=== PATIENT | male | born 1985 | race Caucasian/White ===

== ENCOUNTER 2017-07-28 14:18 | Emergency (ER) | payer SELFPAY ==
[~2017-07-28] VITALS: Ht 182.9 cm; Wt 88.4 kg
[~2017-07-28 14:18] MED LIST: ACET-1256 PO
[2017-07-28 14:19] VITALS: Ht 182.9 cm; Wt 88.4 kg
[2017-07-28] MEDS ORDERED: KETOROLAC TROMETHAMINE 30 MG/ML VIAL IV STA (14:31)
[2017-07-28] MEDS ORDERED: SODIUM CHLORIDE 0.9% 1000ML 1,000 ML IV ONE (14:45)
[2017-07-28] MEDS ORDERED: ACETAMINOPHEN IV 100 ML IV ONE (14:45)
[2017-07-28 14:51] LABS: BASO % 0.2 %; BASO ABS # 0.03 K/uL (0-0.2); COMPLETE YES; EOS % 0.1 %; HEMATOCRIT 42.7 % (42-52); IG% 0.3 %; LYMPH % 5.5 %; LYMPH ABS # 0.85 K/uL (1.2-3.4); MEAN CELL VOLUME 86.6 fL (80-100); MEAN CORPUSCULAR HGB CONC 35.8 g/dl (32-36); MEAN PLATELET VOLUME 11.2 fL (7.4-10.4); MONO % 10.6 %; NEUT % 83.3 %; PLATELET COUNT 155 K/uL (130-400); RED BLOOD COUNT 4.93 M/uL (4.7-6.1); WHITE BLOOD COUNT 15.55 K/uL (4.8-10.8)
[2017-07-28] MEDS ORDERED: DEXAMETHASONE **PF** INJ 10 MG/ML VIAL IV ONE (15:00)
[2017-07-28] MEDS ORDERED: AZITHROMYCIN 250 MG TAB PO ONE ×2 (15:00→16:30)
[2017-07-28 15:09] LABS: BUN/CREATININE RATIO 11.7 (10-20); CALCIUM 9.1 mg/dl (8.5-10.1); CREATININE 1.31 mg/dl (0.60-1.40)
[2017-07-28 15:12] LABS: ALB/GLOB RATIO 0.9 (0.9-2)
[2017-07-28 15:19] VITALS: TEMP 38.8
[2017-07-28] MEDS ORDERED: AZIT250T PO (16:12)
[2017-07-28] MEDS ORDERED: PRED50TA PO (16:12)
[2017-07-28 16:53] VITALS: BP 113/62; PULSE 95; O2SAT 99
--- NOTE | 2017-07-28 21:36 | EMERGENCY ROOM VISIT NOTE ---
History First contact with patient: 14:23 Chief Complaint: FEVER Stated Complaint: NAUSEA,SHAKING,SORE THROAT,CONGESTION History of Present Illness The patient is a 32 year old male who presents to the Emergency Room with complaints of fever, chills, body aches, sore throat, and sinus congestion symptoms for the past one day. The patient considers himself usually healthy without chronic medical disease. He does not take medication on a regular basis. He does not have known exposure to disease. He states that he has had intermittent episodes of sweatiness followed by shaking chills. He has not taken anything for the discomfort. He does not have chest pain, chest tightness , shortness of breath, or abdominal pain. No rash. He is having some discomfort with swallowing. He states that he does have children at home, and they did have strep throat about 2 weeks ago. Review of Systems More than 10 systems were reviewed and otherwise negative with the exception of history of present illness. Past Medical/Surgical History No chronic medical disease Family History Diabetes mellitus Kidney disease Kidney stones Social History Smoking Status: Never Smoker Marital Status: Housing Status: lives with family Occupation Status: employed Current/Historical Medications Scheduled Azithromycin (Zithromax), 250 MG PO DAILY Prednisone (Prednisone), 50 MG PO DAILY Physical Exam Vital Signs Date Time Temp Pulse Resp B/P (MAP) Pulse Ox O2 Delivery O2 Flow Rate FiO2 07/28/17 16:53 95 113/62 99 07/28/17 15:19 38.8 07/28/17 14:19 39.4 130 18 121/61 96 Room Air Physical Exam VITALS: Vitals are noted on the nurse's note and reviewed by myself. Vital signs with noted fever GENERAL: White male who appears ill on examination. He is cooperative and not toxic. HEAD: Normocephalic atraumatic. EARS: External ear normal. External auditory canals clear, tympanic membranes pearly rodríguez without erythema or effusion bilaterally. EYES: Pupils equal round and reactive to light and accommodation. Conjunctivae without injection, sclerae without icterus. Extraocular movements intact. NOSE: Patent, turbinates without inflammation or discharge. MOUTH: Mucous membranes moist. Left tonsil is 3+ enlarged with exudate. Tonsils normal. Mild erythema of the posterior pharynx. Uvula is midline. No evidence of peritonsillar abscess. NECK: Supple without nuchal rigidity. No lymphadenopathy. No thyromegaly. Cervical spine is nontender. HEART: Regular rate and rhythm without murmurs gallops or rubs. LUNGS: Clear to auscultation bilaterally without wheezes, rales or rhonchi. No retractions or accessory muscle use. ABDOMEN: Positive normal bowel sounds x 4. Soft, nontender, without masses or organomegaly. No guarding or rebound tenderness. Medical Decision & Procedures Laboratory Results 07/28/17 14:40 Red Blood Count 4.93, Mean Corpuscular Volume 86.6, Mean Corpuscular Hemoglobin 31.0, Mean Corpuscular Hemoglobin Concent 35.8, Mean Platelet Volume 11.2, Neutrophils (%) (Auto) 83.3, Lymphocytes (%) (Auto) 5.5, Monocytes (%) (Auto) 10.6, Eosinophils (%) (Auto) 0.1, Basophils (%) (Auto) 0.2, Neutrophils # (Auto ) 12.96, Lymphocytes # (Auto) 0.85, Monocytes # (Auto) 1.65, Eosinophils # (Auto ) 0.01, Basophils # (Auto) 0.03 07/28/17 14:40 Test 07/28/17 14:40 07/28/17 15:20 White Blood Count 15.55 K/uL (4.8-10.8) Red Blood Count 4.93 M/uL (4.7-6.1) Hemoglobin 15.3 g/dL (14.0-18.0) Hematocrit 42.7 % (42-52) Mean Corpuscular Volume 86.6 fL (80-100) Mean Corpuscular Hemoglobin 31.0 pg (25-34) Mean Corpuscular Hemoglobin Concent 35.8 g/dl (32-36) Platelet Count 155 K/uL (130-400) Mean Platelet Volume 11.2 fL (7.4-10.4) Neutrophils (%) (Auto) 83.3 % Lymphocytes (%) (Auto) 5.5 % Monocytes (%) (Auto) 10.6 % Eosinophils (%) (Auto) 0.1 % Basophils (%) (Auto) 0.2 % Neutrophils # (Auto) 12.96 K/uL (1.4-6.5) Lymphocytes # (Auto) 0.85 K/uL (1.2-3.4) Monocytes # (Auto) 1.65 K/uL (0.11-0.59) Eosinophils # (Auto) 0.01 K/uL (0-0.5) Basophils # (Auto) 0.03 K/uL (0-0.2) RDW Standard Deviation 41.9 fL (36.4-46.3) RDW Coefficient of Variation 13.2 % (11.5-14.5) Immature Granulocyte % (Auto) 0.3 % Immature Granulocyte # (Auto) 0.05 K/uL (0.00-0.02) Anion Gap 10.0 mmol/L (3-11) Est Creatinine Clear Calc Drug Dose 88.1 ml/min Estimated GFR () 82.3 Estimated GFR (Non- 71.0 BUN/Creatinine Ratio 11.7 (10-20) Calcium Level 9.1 mg/dl (8.5-10.1) Total Bilirubin 3.9 mg/dl (0.2-1) Aspartate Amino Transf (AST/SGOT) 41 U/L (15-37) Alanine Aminotransferase (ALT/SGPT) 86 U/L (12-78) Alkaline Phosphatase 125 U/L (45-117) Total Protein 8.1 gm/dl (6.4-8.2) Albumin 3.9 gm/dl (3.4-5.0) Globulin 4.2 gm/dl (2.5-4.0) Albumin/Globulin Ratio 0.9 (0.9-2) Monoscreen NEG (NEG) Influenza Type A Antigen Neg for Influ A (NEG) Influenza Type B Antigen Neg for Influ B (NEG) Date/Time Source Procedure Growth Status 07/28/17 00:00 Throat Group A Streptococcus Screen - Final SPECIMEN POSITIVE FOR GROUP A BETA ST... Complete 07/28/17 00:00 Throat Group A Streptococcus Screen (GABRIELLA) - Final Complete Medications Administered Medications (Trade) Dose Ordered Sig/Leatha Route Start Time Stop Time Status Last Admin Dose Admin Sodium Chloride 1,000 ml @ 999 mls/hr Q1H1M ONCE IV 07/28/17 14:45 07/28/17 15:45 DC 07/28/17 14:47 999 MLS/HR Ketorolac Tromethamine (Toradol Inj) 30 mg NOW STAT IV 07/28/17 14:31 07/28/17 14:32 DC 07/28/17 14:49 30 MG Acetaminophen 100 ml @ 400 mls/hr NOW ONCE IV 07/28/17 14:45 07/28/17 14:59 DC 07/28/17 14:49 400 MLS/HR Azithromycin (Zithromax Tab) 500 mg NOW ONCE PO 07/28/17 15:00 07/28/17 15:01 DC 07/28/17 15:17 500 MG Dexamethasone Sodium Phosphate (Dexamethasone Inj Pf) 10 mg NOW ONCE IV 07/28/17 15:00 07/28/17 15:01 DC 07/28/17 15:17 10 MG Azithromycin (Zithromax Tab) 250 mg NOW ONCE PO 07/28/17 16:30 07/28/17 16:31 DC 07/28/17 16:41 250 MG ED Course Physical exam and history were performed. Nursing notes, EMR, and Medication List were personally reviewed. Patient appears to have a notable fever and illness for the past one day. The patient appears ill but not toxic on examination. He is febrile at this time. IV access was established and labs were obtained. The patient was hydrated with normal saline. He was given IV Toradol and IV Tylenol. Rapid strep was performed. The patient's blood work is as above and was reviewed. He does have an elevated white blood cell count of 15,000. He does not have a significant anemia or gross electrolyte imbalance. Influenza and Monospot were both negative. The patient's strep swab was positive, and this is felt to be the likely cause of his symptoms. I did elect to give him a dose of Decadron. The patient is allergic to penicillins and will be given a dose of Zithromax here in the department. He will also be given a dose to take home today, as tomorrow is Thanksgiving, and the pharmacies will be closed. Overall the patient's fever did improve with Advil, Tylenol, and fluids. I had a lengthy discussion with the patient regarding further care. I do recommend that he follow-up with his primary care physician in the next few days. If he has persistent fevers greater than 103.5F or difficulty with symptoms that may suggest a peritonsillar abscess, he is to return to the ER immediately. He was given additional discharge instructions as below. The patient was pleased with this and voiced understanding. The chart was completed utilizing [employer] [facility] Speech Voice Recognition Software. Grammatical errors, random word insertions, pronoun errors, and incomplete sentences are an occasional consequence of this system due to software limitations, ambient noise, and hardware issues. Any formal questions or concerns about the content, text, or information contained within the body of this dictation should be directly addressed to the provider for clarification. . Medical Decision Differential diagnosis: Etiologies such as viral syndrome, tonsillitis, streptococcal pharyngitis, mononucleosis, peritonsillar abscess, retropharyngeal abscess, otitis, pneumonia , influenza, as well as others were entertained. Blood Pressure Screening Patient's blood pressure: Normal blood pressure Impression Primary Impression: Strep pharyngitis Additional Impression: Fever Departure Information Dispostion Home / Self-Care Condition GOOD Prescriptions Prednisone (Prednisone) 50 Mg Tab 50 MG PO DAILY for 4 Days, #4 TAB Prov: David Briseno PA-C 07/28/17 Azithromycin (Zithromax) 250 Mg Tab 250 MG PO DAILY for 4 Days, #4 TAB Prov: David Briseno PA-C 07/28/17 Forms HOME CARE DOCUMENTATION FORM, IMPORTANT VISIT INFORMATION Patient Instructions My [facility] Additional Instructions You were seen and evaluated today on an emergency basis only. This is not a substitute for, or an effort to provide, complete comprehensive medical care. It is not possible to recognize and treat all injuries or illnesses in a single emergency department visit. For this reason it is recommended that you followup with your Primary care physician with any ongoing or persistent symptoms. For baseline pain relief you may alternate ibuprofen and acetaminophen every 4 hours for pain control. Take 600 mg ibuprofen (Advil) and then 4 hours later take 1000 mg acetaminophen (Tylenol). Do not take more than 3000 mg acetaminophen in a single day. Take prednisone as prescribed Take Zithromax daily for the next 4 days You are welcome to return to the emergency department anytime with new, worsening, or concerning symptoms. Problem Qualifiers
== END 2017-07-28 16:56 | disposition home or self-care (01) ==
LOC: C.EDB 14:18 → C.EDC 16:56
DX: J02.0 Streptococcal pharyngitis (principal); Z83.3 Family history of diabetes mellitus; Z84.1 Family history of disorders of kidney and ureter